=== PATIENT | male | born 1995 ===

== ENCOUNTER 2020-09-26 11:48 | Emergency (ER) | payer SELFPAY ==
[~2020-09-26] VITALS: Ht 165.1 cm; Wt 59.0 kg
[2020-09-26] MEDS ORDERED: NORCO 5-325 TA1 EACH PO (14:17)
== END 2020-09-26 14:26 | disposition home or self-care (01) ==
LOC: ED 11:48
DX: M25.512 Pain in left shoulder (principal); M25.572 Pain in left ankle and joints of left foot; V80.010A Animal-rider injured by fall from or being thrown from horse in noncollision accident, initial encounter; Y93.89 Activity, other specified; Y92.89 Other specified places as the place of occurrence of the external cause; Y99.8 Other external cause status